=== PATIENT | male | born 1970 | race Caucasian/White ===

== ENCOUNTER 2018-07-02 05:45 | Day surgery (SDC) | payer OTHER ==
[2018-07-02 06:37] LABS: ADD MAN DIFF? NO
[2018-07-02 06:40] LABS: BASOPHIL # 0.1 10^3/ul (0.0-0.1); BASOPHILS % 0.7 % (0.0-2.0); EOSINOPHILS # 0.3 10^3/ul (0.0-0.5); EOSINOPHILS % 4.6 % (0.0-7.0); HEMATOCRIT 46.2 % (42.0-52.0); HEMOGLOBIN 15.5 g/dl (14.0-18.0); LYMPHOCYTES # 2.4 10^3/ul (0.8-2.9); LYMPHOCYTES % 34.7 % (15.0-51.0); MEAN CORPUSCULAR HEMOGLOBIN 29.1 pg (29.0-33.0); MEAN CORPUSCULAR HGB CONC 33.5 g/dl (32.0-37.0); MEAN CORPUSCULAR VOLUME 86.7 fl (82.0-101.0); MONOCYTE # 0.7 10^3/ul (0.3-0.9); MONOCYTES % 9.8 % (0.0-11.0); NEUTROPHIL # 3.4 10^3/ul (1.6-7.5); NEUTROPHILS % 49.8 % (39.0-77.0); PLATELET COUNT 258 10^3/UL (140-415); RED BLOOD COUNT 5.33 10^6/ul (4.70-6.10); RED CELL DISTRIBUTION WIDTH 12.7 % (11.5-14.5)
[2018-07-02 06:40] LABS: WHITE BLOOD COUNT 6.9 10^3/ul (4.8-10.8)
[2018-07-02 07:00] LABS: ANION GAP 17 (8-16); BLOOD UREA NITROGEN 13 mg/dl (7-20); CALCIUM 9.5 mg/dl (8.4-10.2); CARBON DIOXIDE 29 mmol/L (21-31); CHLORIDE 104 mmol/L (97-110); CREATININE 1.07 mg/dl (0.61-1.24); GLUCOSE 116 mg/dl (70-220); INR 0.88; POTASSIUM 4.1 mmol/L (3.5-5.1); PT RATIO 0.9; SODIUM 146 mmol/L (135-144)
[2018-07-02] MEDS ORDERED: HEPARIN 1000 UNITS/ML 10 ML INJ (07:05)
[2018-07-02] MEDS ORDERED: LIDOCAINE 1% (MDV) 10 ML INJ (07:05)
[2018-07-02] MEDS ORDERED: MIDAZOLAM 1 MG/ML 2 ML INJ ×2 (07:05→07:41)
[2018-07-02] MEDS ORDERED: IODIXANOL LOCM 100 ML BTL (07:05)
[2018-07-02] MEDS ORDERED: VERAPAMIL 5 MG INJ (07:06)
[2018-07-02] MEDS ORDERED: SOD CHLORIDE 0.9% 500 ML (07:06)
[2018-07-02] MEDS ORDERED: FENTAnyl 50 MCG/ML VIAL (07:06)
[2018-07-02] MEDS ORDERED: NITROGLYCERIN (IC) 100 MCG/ML INJ (07:06)
[2018-07-02] MEDS: SOD CHLORIDE 0.9% 1,000 ML IV (08:10)
== END 2018-07-02 10:26 | disposition home or self-care (01) ==
LOC: SDS 05:45
DX: R07.9 Chest pain, unspecified (principal); E78.2 Mixed hyperlipidemia; R94.31 Abnormal electrocardiogram [ECG] [EKG]
CPT/HCPCS: 80048; 85025; 85610; 93005; 93458